=== PATIENT | female | born 1985 | race Hispanic/Latino ===

== ENCOUNTER 2017-11-08 19:07 | Emergency (ER) | payer BC ==
[~2017-11-08] VITALS: Ht 160 cm; Wt 93.4 kg
[2017-11-08] MEDS ORDERED: LIDOCAINE 2%/ EPINEPHRINE 20ML MDV INJ ONE (19:30)
--- NOTE | 2017-11-08 21:57 | Diagnostic Imaging Report ---
EXAM: Right Lower Extremity Duplex Ultrasound INDICATION: Right calf swelling COMPARISON: None TECHNIQUE: Mills scale, color Doppler and spectral waveform analysis of the right lower extremity deep venous system was performed. FINDINGS: Common Femoral: Fully compressible with normal spontaneous waveforms. Proximal Greater Saphenous: Fully compressible. Femoral: Fully compressible with normal spontaneous waveforms. Normal response to augmentation. Proximal Deep Femoral: Normal spontaneous waveforms. Popliteal and posterior tibial: Fully compressible with normal spontaneous waveforms. IMPRESSION: No evidence of deep venous thrombosis along the right lower extremity. Signed by: Dr. Nahum Ruffin M.D. on 11/08/2017 9:53 PM
[2017-11-08 22:03] VITALS: BP 134/84
== END 2017-11-08 22:11 | disposition home or self-care (01) ==
LOC: FSED 19:07
DX: L02.415 Cutaneous abscess of right lower limb (principal)
CPT/HCPCS: 10060; 36415; 82948; 93971 ×2; 99283; J2001

== ENCOUNTER → 2017-12-07 | Outpatient (CLI) | payer BC ==
--- NOTE | 2017-12-07 10:42 | Diagnostic Imaging Report ---
TECHNIQUE: Magnetic resonance imaging of the LEFT ANKLE was performed WITHOUT injected contrast. COMPARISON: None available. HISTORY: Left ankle pain FINDINGS: LIGAMENTS: Medial Complex: Contusion of the deltoid ligament. Spring complex intact. Lateral Complex: Inferior tibiofibular ligaments intact. Partial tearing of the anterior talofibular and calcaneofibular ligaments. TENDONS: Medial: Posterior tibial and flexor tendons intact. Lateral: Peroneal tendons intact. Superior retinaculum intact. Anterior: Anterior tibial and extensor tendons intact. Achilles: Achilles tendon intact. BONES: Osseous contusion of the medial malleolus and talus. No acute fracture or osteonecrosis. JOINTS: Cartilage: Osteochondral edema of the lateral tibial plafond posteriorly. Other: Small ankle joint effusion. SOFT TISSUES: Soft tissue edema. IMPRESSION: Ankle inversion injury: * Partial tearing of the ATFL and CFL * Contusion of the medial malleolus, medial talus, and deltoid. * Osteochondral lesion of the posterior lateral tibial plafond. No unstable defect. Signed by: Dr. Benjamin Ponce M.D. on 12/07/2017 10:38 AM
== END ==
LOC: MRI 07:58
PROVIDERS: ATTEND Specialist
DX: S93.402A Sprain of unspecified ligament of left ankle, initial encounter (principal)